=== PATIENT | male | born 1985 | race Caucasian/White ===

== ENCOUNTER 2021-03-02 11:18 | Emergency (ER) | payer SELFPAY ==
[~2021-03-02] VITALS: Ht 180.3 cm; Wt 71.0 kg
[2021-03-02] MEDS ORDERED: BACTRIM 160MG/800MG DS TAB PO ONE (16:05)
[2021-03-02] MEDS ORDERED: LIDOCAINE 2% MDV 20ML VIAL SC ONE (16:05)
[2021-03-02] MEDS ORDERED: BOOSTRIX/ADACEL VACCINE (DIPHTH/PERTUSS/ACELL/TETANUS) 0.5ML SYR IM ONE (16:05)
--- NOTE | 2021-03-02 16:24 | REP ---
INDICATION: ? fb right thumb COMPARISON: None. TECHNIQUE: AP, lateral, bilateral oblique views right 1st digit. FINDINGS: The osseous structures and joint spaces are intact and normal. Mild swelling over the distal phalanx is noted without subcutaneous emphysema or foreign body. IMPRESSION: Swelling. <Electronically signed by Feroz Keyes > 03/02/21 [id number]
[2021-03-02] MEDS ORDERED: BACT800T5 PO (16:55)
[2021-03-02 17:09] VITALS: BP 131/74
== END 2021-03-02 17:35 | disposition home or self-care (01) ==
LOC: M ED 11:18
DX: L03.113 Cellulitis of right upper limb (principal); F12.20 Cannabis dependence, uncomplicated; F17.210 Nicotine dependence, cigarettes, uncomplicated